=== PATIENT | male | born 2005 | race Caucasian/White ===

== ENCOUNTER 2024-05-31 12:27 | Emergency (ER) | payer MEDICAID ==
[~2024-05-31] VITALS: Ht 175.3 cm; Wt 75.0 kg
[2024-05-31] MEDS ORDERED: IOHEXOL 300 MG/ML 100 ML VIAL ONE (14:54)
[2024-05-31] MEDS ORDERED: 0.9% SODIUM CHLORIDE 10 ML SYRINGE IVP ONE (14:54)
[2024-05-31] MEDS ORDERED: SODIUM CHLORIDE 0.9% 100 ML ONE (14:54)
[2024-05-31] MEDS: POVIDONE-IODINE 10% 15 ML SOLUTION UD TP ONE (14:56)
[2024-05-31] MEDS: LIDOCAINE 1% 10 ML VIAL ID ONE (14:57)
[2024-05-31 15:21] LABS: BASOPHILS % (AUTO) 0.4 % (0.0-2.0); EOSINOPHILS % (AUTO) 1.1 % (1.0-6.0); HEMATOCRIT 44.9 % (41-53); HEMOGLOBIN 14.8 g/dL (13.5-17.5); LYMPHOCYTES # (AUTO) 2.4 K/uL (1.0-4.8); LYMPHOCYTES % (AUTO) 18.7 % (22.0-44.0); MEAN CORPUSCULAR HEMOGLOBIN 30.7 pg (26.0-34.0); MEAN CORPUSCULAR VOLUME 93 fL (80-100); MONOCYTES # (AUTO) 1.3 K/uL (0.1-1.0); MONOCYTES % (AUTO) 9.5 % (2.0-9.0); NEUTROPHILS # (AUTO) 9.2 K/uL (1.8-7.7); NEUTROPHILS % (AUTO) 70.3 % (40.0-70.0); PLATELET COUNT (AUTO) 247 K/uL (150-450); RED BLOOD CELL COUNT(AUTO) 4.84 MIL/uL (4.50-5.90); RED CELL DISTRIBUTION WIDTH 13.2 % (11.5-14.5); WHITE BLOOD COUNT (AUTO) 13.1 K/uL (4.5-11.0)
[2024-05-31] MEDS: CLINDAMYCIN 600 MG/D5% WATER 50 ML IV ONE (15:24)
[2024-05-31] MEDS: 0.9% SODIUM CHLORIDE 1000 ML IRRIG SOLUTION BOTTLE IRRIG ONE (15:24)
[2024-05-31 15:31] LABS: ANION GAP 9 mmol/L (8-16); CALCIUM, TOTAL 9.1 mg/dL (8.8-10.5); CARBON DIOXIDE 28 mmol/L (22-29); CHLORIDE 103 mmol/L (98-107); CREATININE 1.07 mg/dL (0.60-1.30); GLOMERULAR FILTR. RATE CALC > 60 mL/min (>60); GLUCOSE,RANDOM 62 mg/dL (70-110); POTASSIUM 4.1 mmol/L (3.5-5.1); SODIUM SERUM 140 mmol/L (136-145); UREA NITROGEN, BLOOD 9 mg/dL (7-18)
[2024-05-31 15:42] LABS: LACTIC ACID 1.3 mmol/L (0.4-2.0)
[2024-05-31] MEDS ORDERED: CLIN-142 PO (19:11)
[2024-05-31 19:18] VITALS: BP 125/68; PULSE 68; RESP 16; TEMP 97.3; O2SAT 100
== END 2024-05-31 19:26 | disposition home or self-care (01) ==
LOC: EMS 12:30
DX: L02.01 Cutaneous abscess of face (principal)
CPT/HCPCS: 80048; 83605; 85025; 87040; 36415; 70487; 99285; 10060; 96365; J3490 ×2; J7050; X7700; Q9967; A4247

== ENCOUNTER 2024-06-02 14:29 | Emergency (ER) | payer MEDICAID ==
[~2024-06-02] VITALS: Ht 167.6 cm; Wt 45.0 kg
[~2024-06-02 14:29] MED LIST: CLIN-142 PO
[2024-06-02 14:34] VITALS: BP 116/61; PULSE 67; RESP 18; TEMP 99.7; O2SAT 99
== END 2024-06-02 15:26 | disposition home or self-care (01) ==
LOC: EMS 14:30
DX: L02.01 Cutaneous abscess of face (principal)
CPT/HCPCS: 99282; Z7502